=== PATIENT | male | born 1990 | race Caucasian/White ===

== ENCOUNTER 2017-10-11 01:33 | Emergency (ER) | payer OTHER ==
[~2017-10-11] VITALS: Ht 175.3 cm; Wt 91.6 kg
[2017-10-11 02:18] LABS: HEMOGLOBIN 13.9 G/DL (12.5-16.6); MCHC 34.8 G/DL (30.0-36.0); MCV 86.2 FL (86-99); PLATELET COUNT 159 K/uL (156-360); RBC DIS.WIDTH-CV 12.5 % (11.8-14.6); RBC DIS.WIDTH-SD 39.1 % (39-53); RED BLOOD COUNT 4.64 M/uL (4.00-5.50); WHITE BLOOD COUNT 7.1 K/uL (4.1-10.2)
[2017-10-11 02:26] LABS: ALBUMIN 4.4 g/dL (3.2-4.8); CHLORIDE 110 mEq/L (99-109); POTASSIUM 3.7 mEq/L (3.7-5.4); SODIUM 144 mEq/L (136-147)
[2017-10-11 02:29] LABS: GLUCOSE 98 mg/dL (70-99); TOTAL PROTEIN 6.8 g/dL (6.4-8.3)
[2017-10-11 02:32] LABS: CREATININE 1.2 mg/dL (0.6-1.3); SERUM ETHYL ALCOHOL 169 mg/dL
[2017-10-11 02:33] LABS: ALKALINE PHOSPHATASE 49 IU/L (3-129)
[2017-10-11 02:34] LABS: AST (GOT) 51 IU/L (2-34); UREA NITROGEN (BUN) 20 mg/dL (9-23)
[2017-10-11 02:36] LABS: ACETAMINOPHEN (TYLENOL) < 10 mcg/mL (10-30); ALT (GPT) 58 IU/L (3-49); SALICYLATE < 5.0 MG/DL (15-30)
[2017-10-11 02:39] LABS: GFR ESTIMATE (CALCULATED) > 59 mL/min/ (58.99-99999)
[2017-10-11 04:25] VITALS: BP 113/62
== END 2017-10-11 04:27 | disposition home or self-care (01) ==
LOC: EDBD 01:33 → EME 01:33
PROVIDERS: Emergency Medicine
DX: F10.129 Alcohol abuse with intoxication, unspecified (principal); Y90.6 Blood alcohol level of 120-199 mg/100 ml; R40.0 Somnolence; R11.10 Vomiting, unspecified; T48.1X5A Adverse effect of skeletal muscle relaxants [neuromuscular blocking agents], initial encounter; F17.200 Nicotine dependence, unspecified, uncomplicated; Z88.1 Allergy status to other antibiotic agents
CPT/HCPCS: 71045; 80053; 81003; 85027; 93005; 99281; 99285; G0480; J2310; J2405; J7030